=== PATIENT | male | born 1955 | race Caucasian/White ===

== ENCOUNTER 2018-06-02 07:20 | Outpatient (CLI) ==
--- NOTE | 2018-06-02 08:54 | DI ---
EXAM: Two views of the chest. History: Right-sided chest pain. Findings: Heart size is normal. No focal consolidation. No appreciable pleural fluid and no pneumo thorax. No acute osseous abnormalities. Impression: No acute cardiopulmonary process
--- NOTE | 2018-06-02 08:55 | DI ---
EXAM: Three views of the thoracic spine. History: Right-sided back pain. Findings: No acute fracture or subluxation of the thoracic spine. Mild to moderate multilevel disc space narrowing with endplate sclerosis and a few small osteophytes. Impression: 1. No acute osseous abnormality of the thoracic spine. 2. Mild to moderate degenerative disc disease
--- NOTE | 2018-06-02 09:00 | CT ---
EXAM: CT of the abdomen pelvis with and without contrast History: Right upper quadrant abdominal pain and right flank pain. Technique: Multiplanar CT images through the abdomen pelvis were obtained with and without the admin istration of IV contrast Findings: Lung bases are clear. No acute osseous abnormalities. Postsurgical changes within the pos terior elements of the lumbar spine at L4-L5. A few punctate 1-2 mm left renal calculi. No right renal calculi. No ureteral calculi. Small to mod erate fat containing ventral hernia. The appendix is normal. Atherosclerotic vascular calcification s. No discrete gallstones are identified by CT. No focal liver or splenic lesions. Pancreas is unr emarkable. Adrenal glands are within normal limits. A few small cysts are seen within the right kid fara with the largest measuring 1.5 cm. No enhancing renal masses. No bowel obstruction. No bladder wall thickening. Prostate is not enlarged. No perirectal inflammation. No free air and no ascites . Scattered colonic stool. Impression: 1. No acute intra-abdominal or pelvic process. 2. Nonobstructing left nephrolithiasis. 3. Fat-containing ventral hernia. 4. Small simple right renal cysts
== END 2018-06-02 07:21 | disposition home or self-care (01) ==
LOC: RAD 07:20
PROVIDERS: ATTEND Internal Medicine
DX: R10.11 Right upper quadrant pain (principal); R10.9 Unspecified abdominal pain

== ENCOUNTER 2019-09-20 09:08 | Inpatient (IN) ==
[2019-09-20] MEDS ORDERED: ATROPINE SULFATE PFS IVP PRN (09:30)
[2019-09-20] MEDS ORDERED: TYLENOL PO PRN (09:30)
[2019-09-20] MEDS ORDERED: NITROSTAT SL PRN (09:30)
[2019-09-20] MEDS ORDERED: VISTARIL INJ IM PRN (09:30)
[2019-09-20 09:42] VITALS: BMI 31.3
[2019-09-20 09:47] LABS: HEMATOCRIT 47.5 % (42.0-52.0)
--- NOTE | 2019-09-20 09:56 | DI ---
EXAM: Single view of the chest. History: Short of breath Comparison: Chest radiograph 06/02/2018 Findings: Heart size is normal. No focal consolidation. No appreciable pleural fluid and no pneumo thorax. No acute osseous abnormalities. Impression: No acute cardiopulmonary process
[2019-09-20] MEDS: ROCEPHIN 1 GM/50 ML D5W 1 GM/50 ML BAG IV SCH (10:15)
[2019-09-20] MEDS: ASPIRIN EC PO SCH (10:16)
[2019-09-20] MEDS: ZITHROMAX PO SCH (10:16)
[2019-09-20] MEDS: LOVENOX SUBCUT SCH (10:18)
[2019-09-20] MEDS: SOLU-CORTEF 250 MG IVP SCH ×3 (11:05→20:11)
[2019-09-20] MEDS: XOPENEX 1.25 MG NEB SCH ×3 (11:05→22:33)
[2019-09-20] MEDS: PULMICORT 0.5 MG/2 ML NEB SCH (17:22)
[2019-09-21] MEDS: SOLU-CORTEF 250 MG IVP SCH ×3 (04:38→21:09)
[2019-09-21] MEDS: XOPENEX 1.25 MG NEB SCH ×4 (04:40→23:20)
[2019-09-21] MEDS: PULMICORT 0.5 MG/2 ML NEB SCH ×2 (04:40→16:47)
[2019-09-21 05:29] LABS: HEMATOCRIT 44.1 % (42.0-52.0)
[2019-09-21] MEDS: ZITHROMAX PO SCH (08:18)
[2019-09-21] MEDS: ASPIRIN EC PO SCH (08:21)
[2019-09-21] MEDS: LOVENOX SUBCUT SCH (08:21)
--- NOTE | 2019-09-21 08:31 | HP ---
DATE OF SERVICE: 09/20/2019 REASON FOR HOSPITALIZATION/HISTORY OF PRESENT ILLNESS: 64 year old male hospitalized with complaints of cough and congestion with yellowish sputum times 3 weeks and getting worse. He is having night sweats, shortness of breath with minimal exertion and chest pain tightness with cough pericardial arch. No symptoms of CHF/ No exertional chest discomfort. PAST MEDICAL HISTORY: CAD Carotid stenosis COPD Osteoarthritis knees Obesity Hyperglycemia Abdominal wall hernia PVCS PAST SURGICAL HISTORY: Stent 2002 Left and right rotator cuff Back surgery 2002 Cataracts and lens REVIEW OF SYSTEMS: CONSTITUTIONAL: Fever, Fatigue. HEENT: Sinus drainage, no sore throat. RESPIRATORY: Cough sputum yellowish, no congestion. CARDIOVASCULAR: Atypical chest pain for coronary artery disease and shortness of breath with exertion. No angina, CHF symptoms, palpitations. GASTROINTESTINAL: No melena or abdominal pain. No GERD. GENITOURINARY: No hematuria, no prostatism, no polyuria. ANIMAL SURGEON: No blackout, no dizziness, no headache, no double vision. MUSCULOSKELETAL: Osteoarthritis pain, no joint swelling. ENDOCRINE: Weight loss 9 pounds in 3 months, no weight gain. SKIN: Not dry, no rash. PSYCHIATRIC: Anxious, no depression, no suicidal thoughts, no homicidal thoughts. SOCIAL HISTORY: Marital Status: . Alcohol Usage: Quit. Tobacco Usage: Quit 03/06. FAMILY HISTORY: Father Mother living Brothers 0 Sisters 3 MEDICATIONS: Aspirin 81mg PO daily Hydrocodone 5-325mg TID Nitroglycerin PRN ALLERGIES: Pravachol PHYSICAL EXAMINATION: V/S: pulse 80, blood pressure 120/80, oxygen saturation 93%. Height 6'0, weight 220.4 and BMI 29.9. GENERAL APPEARANCE: Oriented times three. HEENT: Normal. NECK: No JVP, no bruits. RESPIRATORY: Decreased breath sounds with dry creps. CARDIOVASCULAR: S1, S2, no S3, no murmur. No cyanosis, clubbing. No ascites. GI/ABDOMEN: No tenderness. Bowel sounds are active. EXTREMITIES: edema, pulses +1, equal. ANIMAL SURGEON: Deep tendon reflexes, sensory, motor and gait all normal. RECTAL: The patient refused/PROSTATE: 09/15/18. EKG done today showed sinus rhythm, old anteroseptal, PVCS ASSESSMENT: 1. Acute bronchitis/shortness of breath/PVCS 2. Chest pain- pleuritic type 3. DJD spine 4. CAD with stent [address] Elizondo 6. COPD 7. Osteoarthritis knees 8. Hypogonadism 9. Obesity 10.B12 deficiency 11.Right rotator cuff repair 12.Status post back surgery 2001 13.Abdominal wall hernia 14.Hyperglycemia PLAN: 1. Admit Special Care 2. Routine telemetry orders 3. Continue all medications 4. 25mg IV Solu-Cortef now and 8 hourly 5. NEBS Xopenex now and Q 6 hours 6. Pulmicort BID 7. Sputum for culture and sensitivity 8. TSH, T4 and BNP 9. Rapid Flu A and B 10.Echo 2DM Mode 11.Rocephin 1gram IV piggyback now and 24 hourly 12.Zithromax 500mg PO daily times three days 13.ABG on room air 14.Lovenox 40mg SUBCUT daily 15.No intubation or respirator TIME SPENT: More than 70 minutes. MTDD
[2019-09-21] MEDS: ROCEPHIN 1 GM/50 ML D5W 1 GM/50 ML BAG IV SCH (09:22)
[2019-09-22] MEDS: SOLU-CORTEF 250 MG IVP SCH (04:30)
[2019-09-22 04:48] LABS: HEMATOCRIT 43.4 % (42.0-52.0)
[2019-09-22] MEDS: PULMICORT 0.5 MG/2 ML NEB SCH (05:00)
[2019-09-22] MEDS: XOPENEX 1.25 MG NEB SCH ×2 (05:00→11:05)
[2019-09-22 05:29] VITALS: BP 114/64; TEMP 97.6
--- NOTE | 2019-09-22 07:48 | PN ---
DATE OF SERVICE: 09/21/19 SUBJECTIVE: 64-year-old white male hospitalized with acute bronchitis, short of breath. The patient also has some chest tightness mostly related to breathing problems. The patient doesn't have any exertional chest discomfort. Condition has been worsening for three weeks. The patient says he is feeling 100% better and wants to go home. REVIEW OF SYSTEMS: CONSTITUTIONAL: No night sweats. No fatigue, malaise, lethargy. No fever or chills. HEENT: Eyes: No visual changes. No eye pain. No eye discharge. ENT: No runny nose. No epistaxis. No sinus pain. No sore throat. No odynophagia. No congestion. RESPIRATORY: The patient is still short of breath. Cough has resolved practically. No congestion. No hemoptysis. CARDIOVASCULAR: No angina symptoms. No CHF symptoms. No atypical chest pain for CAD. No palpitations. No PND. No orthopnea. GASTROINTESTINAL: Appetite has improved. No abdominal pain. No nausea or vomiting. No diarrhea or constipation. No hematemesis. No hematochezia. GENITOURINARY: No urgency. No frequency. No dysuria. No hematuria. No obstructive symptoms. No discharge. No pain. No significant abnormal bleeding. MUSCULOSKELETAL: No musculoskeletal pain; no joint swelling. NEUROLOGICAL: No headache. No neck pain. No syncope. No seizures. No dizziness. PSYCHIATRIC: Not anxious. No depression. No suicidal thoughts. No homicidal thoughts. SKIN: No rash. No lesions. No wounds. ENDOCRINE: No unexplained weight loss. No weight gain. HEMATOLOGIC/LYMPHATIC: No anemia. No purpura. No petechiae. No prolonged or excessive bleeding. No palpable lymph nodes. PHYSICAL EXAMINATION: VITAL SIGNS: Temperature 96.8, pulse 57, respiratory rate 16, blood pressure 120/68, pulse ox 96%. HEENT: Head normocephalic, atraumatic. Eyes: Extraocular muscles are intact. Pupils are equal, round and reactive to light and accommodation. Ears: No lesions. Nose appeared normal. Throat: No exudate or erythema. NECK: Supple. No JVD, no carotid bruit. No lymphadenopathy or thyromegaly. LUNGS: Decreased breath sounds. Good air entry. Clear to auscultation. Percussion note normal. Chest symmetrical. HEART: S1, S2, no S3. No murmurs. No cyanosis or clubbing. No ascites. Pulses: Dorsalis pedis and posterior tibial pulses +1 to +2 bilaterally. ABDOMEN: Soft. Nontender. Bowel sounds active. No CVA tenderness. No mass felt. EXTREMITIES: No edema. Full range of motion of all extremities, equal. NEUROLOGIC: No focal deficit. Cranial nerves II through XII are grossly intact. No headache, no double vision or headache. SKIN: Not dry. Intact. Turgor - normal. LYMPHATIC: No palpable lymph nodes/no lymphedema. MUSCULOSKELETAL: Normal joints with no swelling. Muscle tone is normal. LABS: Hemoglobin 14, hematocrit 44, WBC 12,000, normal differential. Creatinine 1, BUN 25, potassium 3.9. ASSESSMENT: 1. ACUTE BRONCHITIS. 2. SEVERE CHRONIC LUNG DISEASE SEEMS TO BE A LOT BETTER. 3. THE PATIENT'S CARDIOVASCULAR STATUS STABLE WITH CARDIAC MARKERS NEGATIVE. EKG UNCHANGED WITH OLD ANTEROSEPTAL WALL TX. THE PATIENT'S ECHOCARDIOGRAM SHOWED NORMAL LV CONTRACTILITY WITH LVH, ENLARGED RV CAVITY AND BORDERLINE LA CAVITY. PLAN: 1. Do PFT and holter monitor. 2. Continue steroids, nebs, antibiotics. 3. The patient will undergo Dobutamine Stress Echo at a later date when his condition is stable. 4. The patient is strongly advised to lose weight. His BMI is 31. Advised pulmonary rehab after he has stress test. 5. Suspect that the patient may need oxygen at discharge for home use as he has shortness of air plus exertional shortness of air. We will evaluate the need for continuous oxygen tomorrow. The patient will also benefit from nebulizer treatments plus the use of rescue inhalers at home. He is agreeable. TIME SPENT: More than 30 minutes. Plan and coordination of the patient's care discussed in the presence of nurse. GHADA
[2019-09-22] MEDS: ROCEPHIN 1 GM/50 ML D5W 1 GM/50 ML BAG IV SCH (09:04)
[2019-09-22] MEDS: ASPIRIN EC PO SCH (09:07)
[2019-09-22] MEDS: ZITHROMAX PO SCH (09:07)
[2019-09-22] MEDS: LOVENOX SUBCUT SCH (09:09)
--- NOTE | 2019-09-22 10:35 | ECHO2D ---
Date of Exam: 09/21/2019 Ordering Physician: DR. SILKE LOVETT Room #: SCU 1 Reason for Echo: SOB, HX NE WITH STENT M-Mode Normal Adult Results LV Dimensions Normal Adult Results AoV Opening excursions >1.6 >1.6 LVEDD-base- 3.5-5.8 4.9 Ao root dimensions 2.0-3.7 3.5 LVESD-base- 3.1-4.6 L. Atrium dimensions 1.9-3.8 4.2 Post. Wall thickness 0.8-1.1 1.3 IV septum (thickness) 0.7-1.2 1.3 Post. Wall excursion 0.72-1.3 NORMAL Septal motion NORMAL Systolic motion R. Ventricular cavity 1.5-2.0 4.0 LVEF 60% 69% Paradoxical septal wall motion NORMAL 2-D : 2-D M Mode Echocardiogram was performed using apical four chamber and left parasternal long and short axis views. Mitral, tricuspid and aortic valves appear to be normal. Contractility of the left ventricle seems to be normal, so is the cavity size. ENLARGED LEFT ATRIAL CAVITY SIZE. Aortic root appear to be normal. There is no pericardial effusion. There is no thrombus noted in the left ventricle or left atrial cavity. No mitral valve prolapse noted. ENLARGED RIGHT VENTRICLE CAVITY. M-MODE: MV: NORMAL AV: NORMAL TV: NORMAL PV: CHAMBER SIZE: ENLARGED LEFT ATRIAL AND RIGHT VENTRICLE CAVITIES WALL MOTION: NORMAL PERICARDIUM: NORMAL INTERPRETATION: 1. LEFT VENTRICULAR HYPERTROPHY WITH ENLARGED LEFT ATRIAL CAVITY 2. ENLARGED RIGHT VENTRICLE CAVITY 3. NORMAL LEFT VENTRICLE CONTRACTILITY 4. NORMAL VALVES MTDD
--- NOTE | 2019-09-22 12:38 | CM.DICTOOL ---
ADMISSION: 09/20/19 09:08 DISCHARGE: SEPTEMBER 22, 2019 DATE OF SERVICE: 09/22/19 FINAL DIAGNOSIS ACUTE BRONCHITIS PLEURITIC CHEST PAIN CARDIAC ARRHYTHMIA, PVC'S COPD (PER PFT 2016) [place] (OLD ANTEROSEPTAL PER EKG) CAD WITH STENT (2002 DR. RAY) CAROTID STENOSIS OSTEOARTHRITIS (KNEES) B12 DEFICIENCY HYPERGLYCEMIA HYPOGONADISM DDD THORACIC SPINE LEFT NEPHROLITHIASIS, NON OBSTRUCTING ([address] ABDOMEN/PELVIS) BACK SURGERY, 2001 RIGHT ROTATOR CUFF REPAIR STRESS ECHO 2016: NEGATIVE FOR ISCHEMIA NORMAL LV CONTRACTILITY RESTING AND POST EXERCISE LAST VITALS Temp Pulse Resp BP Pulse Ox 97.6 F 71 20 114/64 95 09/22/19 05:28 09/22/19 05:28 09/22/19 08:00 09/22/19 05:28 09/22/19 05:28 TAKE THESE MEDICATIONS AT HOME Aspirin (Aspirin Ec) 81 mg PO DAILYWM [facility] Last Admin: 09/22/19 09:07 Dose: 81 mg Documented by: Nitroglycerin (Nitrostat) 0.4 mg SL Q5MIN X 3 DOSES PRN PRN Reason: Chest Pain Hydrocodone-acetaminophen PO TID Last Admin: LIPITOR 10 MG DAILY KEFLEX 500 MG TID FOR 7 DAYS PREDNISONE 20 MG DAILY FOR 5 DAYS PROAIR HFA 2 PUFFS QID PRN SHORTNESS OF AIR/WHEEZING DUONEBS TID ALLERGIES pravastatin [From Pravachol] Adverse Reaction (Verified 09/20/19 09:30) NEW PRESCRIPTIONS: LIPITOR 10 MG DAILY KEFLEX 500 MG TID FOR 7 DAYS PREDNISONE 20 MG DAILY FOR 5 DAYS PROAIR HFA 2 PUFFS QID PRN DUONEBS TID SMOKING: NON SMOKER DISEASE SPECIFIC EDUCATION: USE OF STEROIDS AND RISK OF GI IRRITATION, AVASCULAR NECROSIS USE OF NEBULIZER TREATMENTS USE OF OXYGEN APPOINTMENT OUTPATIENT STRESS ECHO DISCUSSED WITH THE PATIENT. HE DECLINES AT PRESENT, CITING COST OF TESTING. HE REPORTS HE WILL CONSIDER IF CHEST TIGHTNESS REOCCURS. LAB REVIEW: 09/22/19 04:10 09/22/19 04:10 09/22/19 04:10: Sodium 138.9, Potassium 4.49, Chloride 101.8, Carbon Dioxide 27.9, Anion Gap 13.69, BUN 25.1 H, Creatinine 1.07, Estimated GFR (MDRD) 69.00, BUN/Creatinine Ratio 23.45, Glucose 154.3 H, Calcium 8.98, Total Bilirubin 0.15 L, AST 19.9, ALT 15.6, Alkaline Phosphatase 69.8, Total Protein 6.12 L, Albumin 3.42 L, Globulin 2.70, Albumin/Globulin Ratio 1.26 09/22/19 04:10: WBC 14.20 H, RBC 4.21 L, Hgb 14.0, Hct 43.4, MCV 103.1 H, MCH 33.3 H, MCHC 32.3, RDW Coeff of Melissa 12.8, Plt Count 159, Immature Gran % (Auto) 0.6, Neut % (Auto) 81.4 H, Lymph % (Auto) 12.5, [place] % (Auto) 5.4, Eos % (Auto) 0.0, Baso % (Auto) 0.1, Immature Gran # (Auto) 0.1, Neut # (Auto) 11.5 H, Lymph # (Auto) 1.8, [place] # (Auto) 0.8, Eos # (Auto) 0.0, Baso # (Auto) 0.0 PLAN: DISCHARGE HOME DIET: RESUME TOLERATED, DAIRY FREE AND GLUTEN FREE ACTIVITY: RESUME TOLERATED. USE OXYGEN AT 2 LITERS CONTINUOUSLY USE NEBULIZER TREATMENTS AT LEAST 3 TIMES DAILY UNTIL SEEN BY DR. LOVETT NEXT WEEK AN APPOINTMENT HAS BEEN SCHEDULED WITH DR. LOVETT/SAVANAH ARANA APRN ON September AT 10 AM CODE STATUS: DNR PER PATIENT REQUEST MR. JACKSON IS ALERT AND ORIENTED X 4. HE LIVES AT HOME WITH HIS . HE IS AGREEABLE TO PLANS FOR DISCHARGE HOME TODAY. HE HAS BEEN ADVISED OF THE NEED FOR HOME OXYGEN AND NEBULIZER TREATMENTS. HE IS AGREEABLE AFTER DISCUSSING WITH HIS DAUGHTER, ADAM. MR. JACKSON IS INDEPENDENT WITH ACTIVITIES OF DAILY LIVING. HE IS ABLE TO FEED HIMSELF AND HAS A GOOD APPETITE OF 50-100%. HE IS AMBULATORY WITHOUT STAFF ASSISTANCE AND IS ABLE TO PERFORM ALL DAILY HYGIENE. MR. JACKSON IS CONTINENT OF BLADDER AND BOWEL. HOME OXYGEN AND A NEBULIZER HAVE BEEN ORDERED THROUGH [facility] IN [place], [place]. PORTABLE OXYGEN WILL BE DELIVERED TO [facility] PRIOR TO HIS DISCHARGE TODAY. [facility] IS INTACT AND FREE OF DECUBITUS ULCERS. MD GOPAL RUSSO, GROUP THERAPIST
--- NOTE | 2019-09-23 13:15 | DS ---
DATE OF SERVICE: 09/22/19 FINAL DIAGNOSIS: 1. ACUTE BRONCHITIS 2. PLEURITIC CHEST PAIN 3. CARDIAC ARRHYTHMIA, PVC'S 4. COPD (PER PFT 2016) 5. [place] (OLD ANTEROSEPTAL PER EKG) 6. CAD WITH STENT (2002 DR. RAY) 7. CAROTID STENOSIS 8. OSTEOARTHRITIS (KNEES) 9. B12 DEFICIENCY 10. HYPERGLYCEMIA 11. HYPOGONADISM 12. DDD THORACIC SPINE 13. LEFT NEPHROLITHIASIS, NON OBSTRUCTING ([address] ABDOMEN/PELVIS) 14. BACK SURGERY, 2001 15. RIGHT ROTATOR CUFF REPAIR STRESS ECHO 2016: NEGATIVE FOR ISCHEMIA NORMAL LV CONTRACTILITY RESTING AND POST EXERCISE LAST VITALS Temp Pulse Resp BP Pulse Ox 97.6 F 71 20 114/64 95 09/22/19 05:28 09/22/19 05:28 09/22/19 08:00 09/22/19 05:28 09/22/19 05:28 DISCHARGE INSTRUCTIONS: 1. AN APPOINTMENT HAS BEEN SCHEDULED WITH DR. LOVETT/SAVANAH ARANA APRN ON September AT 10 AM. 2. USE OXYGEN AT 2 LITERS CONTINUOUSLY. 3. USE NEBULIZER TREATMENTS AT LEAST 3 TIMES DAILY UNTIL SEEN BY DR. LOVETT NEXT WEEK CODE STATUS: DNR PER PATIENT REQUEST. MEDICATIONS AT DISCHARGE: Aspirin (Aspirin Ec) 81 mg PO DAILYWM [facility] Last Admin: 09/22/19 09:07 Dose: 81 mg Documented by: Nitroglycerin (Nitrostat) 0.4 mg SL Q5MIN X 3 DOSES PRN PRN Reason: Chest Pain Hydrocodone-acetaminophen PO TID Last Admin: LIPITOR 10 MG DAILY KEFLEX 500 MG TID FOR 7 DAYS PREDNISONE 20 MG DAILY FOR 5 DAYS PROAIR HFA 2 PUFFS QID PRN SHORTNESS OF AIR/WHEEZING DUONEBS TID NEW PRESCRIPTIONS: LIPITOR 10 MG DAILY KEFLEX 500 MG TID FOR 7 DAYS PREDNISONE 20 MG DAILY FOR 5 DAYS PROAIR HFA 2 PUFFS QID PRN DUONEBS TID DIET INSTRUCTIONS: RESUME TOLERATED, DAIRY FREE AND GLUTEN FREE ACTIVITY: RESUME TOLERATED SMOKING: NON SMOKER DISEASE SPECIFIC EDUCATION: USE OF STEROIDS AND RISK OF GI IRRITATION, AVASCULAR NECROSIS USE OF NEBULIZER TREATMENTS USE OF OXYGEN APPOINTMENT OUTPATIENT STRESS ECHO DISCUSSED WITH THE PATIENT. HE DECLINES AT PRESENT, CITING COST OF TESTING. HE REPORTS HE WILL CONSIDER IF CHEST TIGHTNESS REOCCURS. LAB REVIEW: 09/22/19 04:10: Sodium 138.9, Potassium 4.49, Chloride 101.8, Carbon Dioxide 27.9, Anion Gap 13.69, BUN 25.1 H, Creatinine 1.07, Estimated GFR (MDRD) 69.00, BUN/Creatinine Ratio 23.45, Glucose 154.3 H, Calcium 8.98, Total Bilirubin 0.15 L, AST 19.9, ALT 15.6, Alkaline Phosphatase 69.8, Total Protein 6.12 L, Albumin 3.42 L, Globulin 2.70, Albumin/Globulin Ratio 1.26 09/22/19 04:10: WBC 14.20 H, RBC 4.21 L, Hgb 14.0, Hct 43.4, MCV 103.1 H, MCH 33.3 H, MCHC 32.3, RDW Coeff of Melissa 12.8, Plt Count 159, Immature Gran % (Auto) 0.6, Neut % (Auto) 81.4 H, Lymph % (Auto) 12.5, Baxter % (Auto) 5.4, Eos % (Auto) 0.0, Baso % (Auto) 0.1, Immature Gran # (Auto) 0.1, Neut # (Auto) 11.5 H, Lymph # (Auto) 1.8, Baxter # (Auto) 0.8, Eos # (Auto) 0.0, Baso # (Auto) 0.0 HOSPITAL COURSE: This 64-year-old male was hospitalized through the office with complaint of shortness of breath on minimal exertion and has had acute bronchitis with severe chronic lung disease. The patient has recently quit smoking. The patient was treated with Rocephin and Zithromax. His condition improved within 24 hours. He wanted to go home. The patient was discharged home after two days of treatment. His lungs were practically clear with good air entry. He had frequent PVC on admission which subsided. The patient's Holter showed 4 to 5 beat run of V-tach, 6 to 7 times with at times frequent PVC. The patient declined to stay further, wanted to put him on Sotalol and see the response. He declined, he wanted to home. Also declined stress test. It was offered to him even as an outpatient. The patient is always concerned about the cost. He said "I will think about it and let you know on my followup visit". At discharge, the patient was up and about with normal appetite, felt a lot better. His oxygen saturation was 94% on room air. The patient qualified for home oxygen which was arranged. He said he is not going to wear it during the daytime, he would wear it at night. The patient is stubborn. At time of discharge, the patient's condition is stable. TIME SPENT: More than 60 minutes. GHADA
--- NOTE | 2019-09-23 13:16 | PN ---
BILLING 09/20/19 ADMISSION DAY LEVEL 5 09/21/19 INTERMEDIATE 09/22/19 DISCHARGE MTDD
--- NOTE | 2019-09-23 13:31 | HOLTER ---
PATIENT INFORMATION AND COMMENTS Attending Physician: DR. SILKE LOVETT Indications: IRREGULAR HEART RATE, PVC'S __ Patient Medications: ASA, NITROGLYCERINE, HYDROCODONE-ACETAMINOPHEN __ Pre-procedure Summary: Protocol: Standard Heart Rate Started: 09/21/2019 1216 Minimum: 61 BPM Weight: 220 LBS Ended: 09/22/2019 1216 Maximum: 145 BPM Height: 72" Duration: 24 HOURS Average: 85 BPM _ INTERPRETATIONS/OBSERVATIONS: 1. BASIC RHYTHM: SINUS, RATE 60 BPM TO 145 BPM, AVERAGE 85 BPM 2. FREQUENT PVC'S WITH FEW 4 TO 5 BEAT VENTRICULAR TACHYCARDIA NOTED 3. RARE PAC'S 4. NO ST-T WAVE CHANGES 5. ACTIVITY LOG NOT MAINTAINED MTDD
--- NOTE | 2019-09-30 13:26 | PN ---
DATE OF SERVICE: 09/22/19 - DISCHARGE NOTE SUBJECTIVE: The patient is up and about, doing better. No chest pain. No PND, no orthopnea. No palpitations. Coughing has decreased. Appetite is a lot better. He is feeling a lot better and wants to go home. PHYSICAL EXAMINATION: VITAL SIGNS: Temperature 98, pulse 70, respiratory rate 15, blood pressure 130/80. HEENT: Head normocephalic, atraumatic. Eyes: Extraocular muscles are intact. Pupils are equal, round and reactive to light and accommodation. Ears: No lesions. Nose appeared normal. Throat: No exudate or erythema. NECK: Supple. No JVD, no carotid bruit. No lymphadenopathy or thyromegaly. LUNGS: Decreased breath sounds but clear to auscultation. Percussion note normal. Chest symmetrical. HEART: S1, S2, no S3. No murmurs. No cyanosis or clubbing. No ascites. Pulses: Dorsalis pedis and posterior tibial pulses +1 to +2 bilaterally. ABDOMEN: Soft. Nontender. Bowel sounds active. No CVA tenderness. No mass felt. EXTREMITIES: No edema. Full range of motion of all extremities, equal. NEUROLOGIC: No focal deficit. Cranial nerves II through XII are grossly intact. No headache, no double vision or headache. SKIN: Not dry. Intact. Turgor - normal. LYMPHATIC: No palpable lymph nodes/no lymphedema. MUSCULOSKELETAL: Normal joints with no swelling. Muscle tone is normal. ASSESSMENT: 1. ACUTE BRONCHITIS/COPD. PLAN: The patient's Holter showed 4 to 5 beat run of V-tach 6 to 7 times with at times frequent PVC. The patient is refusing to stay further. Wanted him to start on Sotalol but the patient declined to stay refusing stress test. At the present time he says when he comes back on followup he may have it done. The patient is noncompliant of recommendations, diet. He is worried about the cost all the time. TIME SPENT: More than 30 minutes. Plan and coordination of the patient's care discussed in the presence of nurse. GHADA
--- NOTE | 2019-10-04 12:50 | PN ---
DATE OF SERVICE: 09/22/19 SUBJECTIVE: The patient's Holter showed frequent PVCs, approximately 20% of total beats scanned along with short runs of V-tach four to five beats, a few of them. The patient was strongly advised to stay a couple of days more where we can try out some antiarrhythmic medications but he declined. He understands the consequences and seriousness of ventricular arrhythmias. Again, the patient was advised further evaluation with Dobutamine stress echo, Sestamibi and he declined. Constantly gives excuse of having too much expense. PFT shows severe chronic lung disease with FEV1 of 1.2L. Also explained to the patient about it and there is some improvement since the last one was done in 2014. TIME SPENT: More than 30 minutes. Plan and coordination of the patient's care discussed in the presence of nurse. GHADA
== END 2019-09-22 13:55 | disposition home or self-care (01) | DRG 202 ==
LOC: SCU 09:08
PROVIDERS: ADMIT Internal Medicine; ATTEND Internal Medicine